=== PATIENT | female | born 1995 | race Caucasian/White ===

== ENCOUNTER 2019-01-25 16:18 | Emergency (ER) | payer OTHER, SELFPAY ==
[2019-01-25 16:28] VITALS: BP 112/69; PULSE 74; RESP 16; TEMP 36.6; O2SAT 100
--- NOTE | 2019-01-25 18:59 | W.ED.GENAD ---
Discharge Plan Disposition Patient Disposition: HOME Condition: Improving Discharge Details Chief Complaint: Laceration Clinical Impression: Laceration of leg Primary Care Provider: Liliane,Local ED Provider: Warren Oh Home Meds and New Rx's Prescriptions: No Action No Known Home Meds RF: 0 Discharge Instructions Instructions: Care For Your Stitches (ED), Laceration (ED) Additional Instructions: Please keep wound clean and dry and leave initial bandage on for preferably the first 24 to 48 hours. Watch for any signs of infection such as purulent drainage, surrounding erythema, any significant increase in pain discomfort that is out of the ordinary. If these occur you should seek reassessment for possible signs of infection. Otherwise please keep sutures in place for the next 12-14 days. And either remove the sutures as instructed or follow-up with primary care provider to have them. Referrals: Primary Care Provider [Outside] (As needed for suture removal) Discharge Data Discharge Date/Time-TO BE ENTERED AT DEPARTURE: 01/25/19 19:10 Medical Decision Making Left leg laceration, 12 mL's 1% lidocaine with epinephrine, thoroughly irrigated, 6 cm total in length, no debris noncontaminated, 10 simple interrupted 4-0 Ethilon sutures were placed. Patient up-to-date on tetanus. Patient encouraged to watch for any signs of infection. Return precautions were discussed. After discussion of diagnosis and plan of care patient has no further needs, questions, or concerns and states clear understanding to return to the emergency department for any worsening symptoms. HPI General Mode of arrival: ambulatory. Date/Time Provider Initiated Documentation: 01/25/19 16:57. Limitations to Documentation: no limitations. Information obtained by: patient and RN notes reviewed. History of Present Illness 23 year old F presents to the emergency department with the chief complaint of Left leg laceration, described as mild, with intensity rated at 3. Quality is described as aching, and is localized to the left and upper extremity. Patient started experiencing this hour(s) (1) and it has been constant. Patient notes no other symptoms.. Related Data Home Medications Medication Instructions Recorded Confirmed Unknown [No Known Home Meds] 01/25/19 01/25/19 Allergies Allergy/AdvReac Type Severity Reaction Status Date / Time codeine AdvReac Intermediate Nausea Unverified 01/25/19 16:30 General Stated Complaint: Laceration JEAN: 4 Review of Systems ENT Ears, Nose, Mouth, and Throat: Denies neck pain Cardiovascular Cardiovascular: Denies syncope and Denies lightheadedness Musculoskeletal Musculoskeletal: Denies back pain, Denies deformity, Denies limited range of motion, Denies neck pain and Denies numbness Integumentary/Breasts Skin/Breast: Reports as per HPI Neurologic Neurologic: Denies syncope, Denies memory loss, Denies numbness and Denies paresthesias Psychiatric Psychiatric: Denies memory loss [facility] Social History Smoking/Tobacco Use Status: Never Alcohol Intake: current Alcohol Intake frequency: a few times a month Alcohol type: beer and wine Drug use: Never Substance use type: does not use Do you feel safe at home: Yes Do you feel safe in your relationship?: Yes Exam Const General: cooperative and no acute distress Orientation: alert, awake and oriented x3 Limitations: mental status not altered Resp Effort & Inspection: normal respiratory effort and able to speak in complete sentences Cardio Rate: regular rate Rhythm: regular rhythm Neuro General: alert, awake, oriented x3, gait normal, tone normal and moves all extremities Motor: no movement abnormalities noted Sensory Exam: no sensory deficits noted Extrem Left lower extremity: hip/thigh Details: laceration mid upper leg anterior Details: linear, actively bleeding, involving subcutaneous tissue, with motor nerve function intact and with sensation intact; not contaminated Course Vital Signs Vital signs: Vital Signs Temperature 36.6 C 01/25/19 16:28 Pulse 74 01/25/19 16:28 Respiratory Rate 16 01/25/19 16:28 Blood Pressure 112/69 01/25/19 16:28 Pulse Oximetry 100 01/25/19 16:28 Temperature 36.6 C 01/25/19 16:28 Temperature Source Skin 01/25/19 16:28 Pulse 74 01/25/19 16:28 Respiratory Rate 16 01/25/19 16:28 Respiratory Effort Non-Labored 01/25/19 16:30 Blood Pressure 112/69 01/25/19 16:28 Pulse Oximetry 100 01/25/19 16:28 Pain Level 3 01/25/19 16:28 Procedures Laceration Laceration 1: Site: lower extremity Side (If applicable): left Size (cm): 6 Description: linear and clean Depth: simple, single layer Local Anesthetic: Lidocaine 1% and with Epi Amount of anesthesia used (mL): 12 Pre-repair: wound explored, irrigated extensively and deep structures intact Size (cm): 4-0 Number of sutures: 10 Technique: simple, interrupted
[2019-01-25 19:12] VITALS: BP 112/69; PULSE 74; RESP 16; O2SAT 100
== END 2019-01-25 19:10 | disposition home or self-care (01) ==
PROVIDERS: Emergency Provider Nurse Practitioner Family
DX: S71.112A Laceration without foreign body, left thigh, initial encounter (principal); V17.0XXA Pedal cycle driver injured in collision with fixed or stationary object in nontraffic accident, initial encounter
CPT/HCPCS: 12002